=== PATIENT | male | born 1960 | race Caucasian/White ===

== ENCOUNTER 2022-01-09 11:09 | Day surgery (SDC) | payer BC ==
--- NOTE | 2022-01-09 08:04 | HP ---
DATE OF SURGERY: 01/09/2022 HISTORY OF PRESENT ILLNESS: The patient is a 61-year-old who had shoulder injury. The past few months however has increased size subcutaneous mass. He did not have any other recent shoulder or back injury or trauma. He has a subcutaneous density and desires exploration and excision. PAST MEDICAL HISTORY: Asthma. PAST SURGICAL HISTORY: Hernia repair in the past. MEDICATIONS: None on a regular basis. ALLERGIES: NKDA. FAMILY HISTORY: Cancer. SOCIAL HISTORY: No smoking or alcohol abuse. REVIEW OF SYSTEMS: Fourteen systems reviewed. No chest pain or palpitations. Other systems negative or noncontributory as above and per preadmission questionnaire. PHYSICAL EXAMINATION: GENERAL: No acute distress. HEENT: Sclerae nonicteric. NECK: No JVD. CHEST: Equal excursion, nonlabored breathing. CVS: Regular rate and rhythm. ABDOMEN: Soft. No peritoneal signs. EXTREMITIES: No significant edema. NEURO: Alert, oriented, moving extremities symmetrically. PSYCH: Appropriate mood and affect. SKIN: Upper back area had subcutaneous or intramuscular density here. LAB DATA AND TESTS: Ultrasound showed muscle injury tear potential for intramuscular lipoma. IMPRESSION: Increasingly symptomatic, increasing in size right shoulder/upper back mass could be lipoma, fibroma, muscle injury or other issue. Because of increasing in size causing discomfort, he desires exploration possible excision. Risks and benefits explained in detail including but not limited to bleeding or infection, risk of wound infection or dehiscence possibly requiring packing. He understands that if this is a lipoma will likely excise it and send it off for path. This will likely not recur it could get other subcu or intramuscular fatty tumor down the road that could require other procedures. He understands there is a possibility that this is similar or sort of mass and it is well encapsulated would excise. If it appeared to be more some sort of muscle injury would be to biopsy for path and it could need orthopedic referral if it is indeed some sort of muscle injury problem or than benign mass. He understands and prefers to go ahead and proceed with exploration/excision of upper right shoulder mass or lipoma as an outpatient. General risk of anesthesia, deep venous thrombosis, pulmonary embolism, or pneumonia but not limited to, aches and pains possible no improvement in symptoms. He understands and agrees the planned procedure, will proceed with exploration, excision or excision and biopsy of right shoulder mass or lipoma as an outpatient.
[~2022-01-09 11:09] MED LIST: Lactated Ringers 1,000 ML IV ONE; Sensorcaine 0.25% 10 ML ONE
[2022-01-09] MEDS ORDERED: CEFAZOLIN 2 GM-D5W BAG** 2 GM/50 ML ML IV SCH (12:00)
[2022-01-09] MEDS ORDERED: Lactated Ringers 1,000 ML IV SCH (12:00)
[2022-01-09] MEDS ORDERED: DIPRIVAN 200 MG/20 ML IV ONE (12:19)
[2022-01-09] MEDS ORDERED: Zofran 4 MG/2 ML VIAL ONE (12:19)
[2022-01-09] MEDS ORDERED: Xylocaine-Mpf 2% 5 Ml Vial ONE (12:19)
[2022-01-09] MEDS ORDERED: Decadron 4 MG INJ ONE (12:19)
[2022-01-09] MEDS ORDERED: SUBLIMAZE 100 MCG/2 ML ONE (12:22)
[2022-01-09] MEDS ORDERED: Versed 2 MG/2 ML Injection ONE (12:22)
[2022-01-09 14:35] VITALS: BP 154/96; PULSE 57; O2SAT 94
--- NOTE | 2022-01-10 09:02 | OP ---
SURGERY DATE/TIME: 01/09/2022 1230 PREOPERATIVE DIAGNOSIS: Enlarging right shoulder mass. POSTOPERATIVE DIAGNOSIS: Large 4 cm lipomatous density subfascial/submuscular right shoulder. PROCEDURE: Excisional biopsy right shoulder subfascial/submuscular lipomatous density (approximately 4 cm). SURGEON: Dr. Chris Berger. ANESTHESIA: General. ESTIMATED BLOOD LOSS: Minimal. INDICATIONS: As noted above. Risks and benefits explained in detail and not limited to and consent obtained. The site was confirmed with the patient preoperatively. DESCRIPTION OF PROCEDURE AND FINDINGS: The patient is taken to the operating room. General anesthesia induced. Placed in lateral position. Appropriately padding and positioning per anesthesia and OR staff. Prepped and draped in the usual sterile fashion in lateral position with beanbag. Appropriate padding and positioning per anesthesia and OR staff. After official time out and no disagreement with planned procedure, a transverse incision made. Dissection carried down through skin through subcutaneous tissue. The fascia was carefully split sharply down to the muscular layer. This density was underneath the muscle area. The muscle is carefully with a clamp with [facility] retractor retracting it away from the large lipomatous density underneath. This took some time but slowly and carefully mobilized up this elongated lipomatous density carefully mobilized up off the deeper tissue under the muscle and off the deeper tissue. This is mobilized upwards with some pinpoint cautery of small, tiny vasculature as necessary. It was finally able to be mobilized upwards and passed off. It measured about 4 cm. It appeared to be lipomatous density in nature but final path pending to rule out other etiology. Good hemostasis noted. The wound was irrigated out. The fascia was then re-approximated with running #1 Vicryl. Subcu closed with 3-0 Vicryl. Skin closed with 4-0 Vicryl. It was closed in intermediate fashion. Interrupted 3-0 Prolene used to reinforce the area. Steri-Strips and sterile dressing applied. The patient tolerated the procedure well. Findings discussed with the family out in the waiting area.
== END 2022-01-09 14:45 | disposition home or self-care (01) ==
LOC: SDC 11:09
PROVIDERS: ATTEND Surgery
DX: D17.21 Benign lipomatous neoplasm of skin and subcutaneous tissue of right arm (principal)
CPT/HCPCS: J0690; J1100; J2250; J2405; J2704; J3010